=== PATIENT | male | born 1990 | race Caucasian/White ===

== ENCOUNTER 2016-07-12 16:45 | Emergency (ER) | payer OTHER ==
[2016-07-12] MEDS ORDERED: CLINDAMYCIN 150 MG CAP As Ordered ONE (20:12)
--- NOTE | 2016-07-12 20:22 | EDDOCDS ---
Nurse's Notes [facility] Name: Kelly Manriquez Age: 25 yrs Sex: Male : 1990 Arrival Date: 07/12/2016 Time: 16:45 Bed TR7 Private MD: Other - Complete Info On Cds Diagnosis: Cellulitis and abscess of mouth-DENTAL, RIGHT LOWER JAW, S/P WISDOM TOOTH REMOVAL Presentation: 07/12 16:52 Presenting complaint: Patient states: I had my wisdom teeth taken out on June 25 [facility] and I noticed yesterday some swelling on right side mouth and feel pain with facial movement and a salty pus like taste and discharge when I squeeze it. Adult Sepsis Screening: The patient does not have new or worsening altered mentation. Patient's respiratory rate is less than 22. Systolic blood pressure is greater than 100. Patient has a qSOFA score of 0- Negative Sepsis Screen. Suicide/Homicide risk assessment- the patient denies having any suicidal and/or homicidal ideations and does not present with any other emotional, behavioral or mental health complaints. 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 Transition of care: patient was not received from another setting of care. 16:52 Acuity: CHAPINCITO Level 4 [facility] 16:52 Method Of Arrival: Walkin/Carried/Asstd [facility] Triage Assessment: 16:54 General: Appears in no apparent distress, comfortable, Behavior is appropriate for age, [facility] cooperative. Pain: Location: mouth Pain currently is 4 out of 10 on a pain scale. 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 active duty . EENT: Reports pain Pain is 4 out of 10 on a pain scale. Respiratory: Airway is patent Respiratory effort is even, unlabored, Respiratory pattern is regular, symmetrical. Derm: Skin is pink, warm & dry. Historical: - Allergies: no known allergies; - Home Meds: 1. none - PMHx: none; - PSHx: shoulder, left, x2; - Social history: Smoking status: Patient uses tobacco products, light tobacco smoker. No barriers to communication noted. - Family history: Not pertinent. - : The pt / caregiver states he / she is not on anticoagulants. Home medication list is obtained from the patient. - Exposure Risk Screening:: None identified. Screenin:18 Screening information is obtained from the patient. Fall risk: No risks identified. jf3 Assistance ADL's: requires no assistance with activities of daily living. Abuse/DV Screen: The patient / caregiver reports he/she is: not in a situation that causes fear, pain or injury. Nutritional screening: No deficits noted. Advance Directives: Currently, there is no health care proxy. There is no active DNR order. home support is adequate. Assessment: 20:18 General: Appears in no apparent distress, comfortable, Behavior is cooperative. Pain: jf3 Location: left lower jaw Pain currently is 4 out of 10 on a pain scale. Neurological: Level of Consciousness is awake, alert, Oriented to person, place, time. Cardiovascular: Capillary refill < 3 seconds Chest pain is denied. Respiratory: Airway is patent Respiratory effort is even, unlabored. Derm: Skin is pink, warm & dry. Vital Signs: 16:47 BP 127 / 65; Pulse 97; Resp 18 S; Temp 98.3(O); Pulse Ox 97% on R/A; Weight 83.01 kg gr2 (R); Height 5 ft. 7 in. (170.18 cm) (R); Pain 4/10; 19:42 BP 128 / 79; Pulse 78; Resp 16; Temp 98.5(TE); Pulse Ox 98% on R/A; Pain 3/10; sew 16:47 Body Mass Index 28.66 (83.01 kg, 170.18 cm) gr2 Vitals: 16:47 Log In Time: July 12, 2016 at 16:47. gr2 ED Course: 16:47 Patient visited by Mason Sun. gr2 16:47 Other - Complete Info On Cds is Private Physician. gr2 16:47 Patient moved to Waiting gr2 16:49 Patient visited by Mason Sun. gr2 16:49 Patient moved to Pre RCE gr2 16:54 Triage Initiated cjh 19:36 Patient moved to Triage 2 jf3 19:42 Patient visited by Ghazala Booker. sew 19:45 Marisa Bethea [facility]-C [facility]. dt4 19:45 Kev Bower DO is Attending Physician. dt4 19:45 Patient visited by Marisa Bethea PA-C. dt4 20:10 Malvin Morse is Referral Physician. dt4 20:18 The patient / caregiver is instructed regarding the plan of care and ED course. jf3 20:18 No IV's were initiated during this patient's visit. No procedures done that require jf3 assistance. 20:21 Patient moved to [facility] Administered Medications: 20:18 Drug: Clindamycin 300 mg [clindamycin 150 mg capsule (2 caps)] Route: PO; jf3 20:21 Follow up: Response: Pt left department before re-evaluation is appropriate jf3 Order Results: There are currently no results for this order. Outcome: 20:10 Discharge ordered by Provider. dt4 20:18 Discharge Assessment: Patient awake, alert and oriented x 3. No cognitive and/or jf3 functional deficits noted. Patient verbalized understanding of disposition instructions. Discharge Assessment: patient administered narcotics - no. The following High Risk Discharge criteria are identified: None. Discharged to home ambulatory. Condition: good. Discharge instructions given to patient, Instructed on discharge instructions, follow up and referral plans. medication usage, no driving heavy equipment, Demonstrated understanding of instructions, medications, Pt was receptive of discharge instructions/ teaching. No special radiology studies were completed. Property :Personal belongings accompany Pt. 20:21 Patient left the ED. jf3 Signatures: Chacho Sam, RN RN cz Annie Travis,RN RN safia Ghazala Booker Gainslee gr2 Marisa Bethea PA-C PA-C dt4 John Rice,RN RN jf3 MTDD
--- NOTE | 2016-07-12 20:22 | EDDOCDS ---
Physician Documentation [facility] Name: Kelly Manriquez Age: 25 yrs Sex: Male : 1990 Arrival Date: 07/12/2016 Time: 16:45 Bed TR7 Private MD: Other - Complete Info On Cds Disposition: 07/12/16 20:10 Discharged to Home/Self Care. Impression: Cellulitis and abscess of mouth - DENTAL, RIGHT LOWER JAW, S/P WISDOM TOOTH REMOVAL. - Condition is Stable. - Discharge Instructions: Dental Abscess. - Prescriptions for Clindamycin HCl 300 mg Oral Capsule - take 1 capsule by ORAL route every 6 hours; 40 capsule. [place] 5- 325 mg Oral Tablet - take 1 tablet by ORAL route every 6 hours As needed MDD: 4 tabs; 10 tablet. - Medication Reconciliation, Local Pharmacy Hours form. - Follow up: Emergency Department; When: As needed; Reason: Worsening of conditions. Follow up: Malvin Morse; When: 2 - 3 days; Reason: Wound/Symptom Recheck, Recheck today's complaints, Continuance of care. - Problem is new. - Symptoms are unchanged. Historical: - Allergies: no known allergies; - Home Meds: 1. none - PMHx: none; - PSHx: shoulder, left, x2; - Social history: Smoking status: Patient uses tobacco products, light tobacco smoker. No barriers to communication noted. - Family history: Not pertinent. - : The pt / caregiver states he / she is not on anticoagulants. Home medication list is obtained from the patient. - Exposure Risk Screening:: None identified. Vital Signs: 07/12 16:47 BP 127 / 65; Pulse 97; Resp 18 S; Temp 98.3(O); Pulse Ox 97% on R/A; Weight 83.01 kg / gr2 183.01 lbs (R); Height 5 ft. 7 in. (170.18 cm) (R); Pain 4/10; 19:42 BP 128 / 79; Pulse 78; Resp 16; Temp 98.5(TE); Pulse Ox 98% on R/A; Pain 3/10; sew 16:47 Body Mass Index 28.66 (83.01 kg, 170.18 cm) gr2 MDM: 20:09 Clindamycin 300 mg PO once ordered. dt4 Administered Medications: 20:18 Drug: Clindamycin 300 mg [clindamycin 150 mg capsule (2 caps)] Route: PO; jf3 20:21 Follow up: Response: Pt left department before re-evaluation is appropriate jf3 Signatures: Annie Travis,RN RN Marisa Núñez PA-C PA-C dt4 John Rice RN RN jf3 MTDD
--- NOTE | 2016-07-14 21:23 | EDDOCDS ---
Physician Documentation [facility] Name: Kelly Manriquez Age: 25 yrs Sex: Male : 1990 Arrival Date: 07/12/2016 Time: 16:45 Bed TR7 Private MD: Other - Complete Info On Cds Disposition: 07/12/16 20:10 Discharged to Home/Self Care. Impression: Cellulitis and abscess of mouth - DENTAL, RIGHT LOWER JAW, S/P WISDOM TOOTH REMOVAL. - Condition is Stable. - Discharge Instructions: Dental Abscess. - Prescriptions for Clindamycin HCl 300 mg Oral Capsule - take 1 capsule by ORAL route every 6 hours; 40 capsule. [place] 5- 325 mg Oral Tablet - take 1 tablet by ORAL route every 6 hours As needed MDD: 4 tabs; 10 tablet. - Medication Reconciliation, Local Pharmacy Hours form. - Follow up: Emergency Department; When: As needed; Reason: Worsening of conditions. Follow up: Malvin Morse; When: 2 - 3 days; Reason: Wound/Symptom Recheck, Recheck today's complaints, Continuance of care. - Problem is new. - Symptoms are unchanged. Historical: - Allergies: no known allergies; - Home Meds: 1. none - PMHx: none; - PSHx: shoulder, left, x2; - Social history: Smoking status: Patient uses tobacco products, light tobacco smoker. No barriers to communication noted. - Family history: Not pertinent. - : The pt / caregiver states he / she is not on anticoagulants. Home medication list is obtained from the patient. - Exposure Risk Screening:: None identified. Vital Signs: 07/12 16:47 BP 127 / 65; Pulse 97; Resp 18 S; Temp 98.3(O); Pulse Ox 97% on R/A; Weight 83.01 kg / gr2 183.01 lbs (R); Height 5 ft. 7 in. (170.18 cm) (R); Pain 4/10; 19:42 BP 128 / 79; Pulse 78; Resp 16; Temp 98.5(TE); Pulse Ox 98% on R/A; Pain 3/10; sew 16:47 Body Mass Index 28.66 (83.01 kg, 170.18 cm) gr2 MDM: 20:09 Clindamycin 300 mg PO once ordered. dt4 20:29 Financial registration complete. ks 20:29 [facility] Payment Agreement was scanned into [employer] and attached to record. 07/13 17:20 T-Sheet-- Draft Copy was scanned into [employer] and attached to record. klr Administered Medications: 07/12 20:18 Drug: Clindamycin 300 mg [clindamycin 150 mg capsule (2 caps)] Route: PO; jf3 20:21 Follow up: Response: Pt left department before re-evaluation is appropriate jf3 Signatures: Annie Travis,RN RN [facility] Marisa Bethea, PAKenyattaC PA-C dt4 John Rice RN RN jf3 Celestina Pearce, Reg Reg ks16 Jena Karimi klr The chart was reviewed and I authenticate all verbal orders and agree with the evaluation and treatment provided.Attachments: : [facility] Payment Agreement 07/13 17:20 T-Sheet-- Draft Copy klr Chart Complete MTDD
--- NOTE | 2016-07-14 21:23 | EDDOCDS ---
Physician Documentation [facility] Name: Kelly Manriquez Age: 25 yrs Sex: Male : 1990 Arrival Date: 07/12/2016 Time: 16:45 Bed TR7 Private MD: Other - Complete Info On Cds Disposition: 07/12/16 20:10 Discharged to Home/Self Care. Impression: Cellulitis and abscess of mouth - DENTAL, RIGHT LOWER JAW, S/P WISDOM TOOTH REMOVAL. - Condition is Stable. - Discharge Instructions: Dental Abscess. - Prescriptions for Clindamycin HCl 300 mg Oral Capsule - take 1 capsule by ORAL route every 6 hours; 40 capsule. [place] 5- 325 mg Oral Tablet - take 1 tablet by ORAL route every 6 hours As needed MDD: 4 tabs; 10 tablet. - Medication Reconciliation, Local Pharmacy Hours form. - Follow up: Emergency Department; When: As needed; Reason: Worsening of conditions. Follow up: Malvin Morse; When: 2 - 3 days; Reason: Wound/Symptom Recheck, Recheck today's complaints, Continuance of care. - Problem is new. - Symptoms are unchanged. Historical: - Allergies: no known allergies; - Home Meds: 1. none - PMHx: none; - PSHx: shoulder, left, x2; - Social history: Smoking status: Patient uses tobacco products, light tobacco smoker. No barriers to communication noted. - Family history: Not pertinent. - : The pt / caregiver states he / she is not on anticoagulants. Home medication list is obtained from the patient. - Exposure Risk Screening:: None identified. Vital Signs: 07/12 16:47 BP 127 / 65; Pulse 97; Resp 18 S; Temp 98.3(O); Pulse Ox 97% on R/A; Weight 83.01 kg / gr2 183.01 lbs (R); Height 5 ft. 7 in. (170.18 cm) (R); Pain 4/10; 19:42 BP 128 / 79; Pulse 78; Resp 16; Temp 98.5(TE); Pulse Ox 98% on R/A; Pain 3/10; sew 16:47 Body Mass Index 28.66 (83.01 kg, 170.18 cm) gr2 MDM: 20:09 Clindamycin 300 mg PO once ordered. dt4 20:29 Financial registration complete. ks 20:29 PENDING S[facility] TO [facility] Payment Agreement was scanned into [employer] and attached to record. 07/13 17:20 T-Sheet-- Draft Copy was scanned into [employer] and attached to record. klr Administered Medications: 07/12 20:18 Drug: Clindamycin 300 mg [clindamycin 150 mg capsule (2 caps)] Route: PO; jf3 20:21 Follow up: Response: Pt left department before re-evaluation is appropriate jf3 Signatures: Annie Travis,RN RN [facility] Marisa Bethea, PAKenyattaC PA-C dt4 John Rice RN RN jf3 Celestina Pearce, Reg Reg ks16 Jena Karimi klr The chart was reviewed and I authenticate all verbal orders and agree with the evaluation and treatment provided.Attachments: : [facility] Payment Agreement 07/13 17:20 T-Sheet-- Draft Copy klr Chart Complete MTDD
--- NOTE | 2016-07-14 21:23 | EDDOCDS ---
Nurse's Notes [facility] Name: Kelly Manriquez Age: 25 yrs Sex: Male : 1990 Arrival Date: 07/12/2016 Time: 16:45 Bed TR7 Private MD: Other - Complete Info On Cds Diagnosis: Cellulitis and abscess of mouth-DENTAL, RIGHT LOWER JAW, S/P WISDOM TOOTH REMOVAL Presentation: 07/12 16:52 Presenting complaint: Patient states: I had my wisdom teeth taken out on June 25 [facility] and I noticed yesterday some swelling on right side mouth and feel pain with facial movement and a salty pus like taste and discharge when I squeeze it. Adult Sepsis Screening: The patient does not have new or worsening altered mentation. Patient's respiratory rate is less than 22. Systolic blood pressure is greater than 100. Patient has a qSOFA score of 0- Negative Sepsis Screen. Suicide/Homicide risk assessment- the patient denies having any suicidal and/or homicidal ideations and does not present with any other emotional, behavioral or mental health complaints. 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 Transition of care: patient was not received from another setting of care. 16:52 Acuity: CHAPINCITO Level 4 [facility] 16:52 Method Of Arrival: Walkin/Carried/Asstd [facility] Triage Assessment: 16:54 General: Appears in no apparent distress, comfortable, Behavior is appropriate for age, [facility] cooperative. Pain: Location: mouth Pain currently is 4 out of 10 on a pain scale. 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 active duty . EENT: Reports pain Pain is 4 out of 10 on a pain scale. Respiratory: Airway is patent Respiratory effort is even, unlabored, Respiratory pattern is regular, symmetrical. Derm: Skin is pink, warm & dry. Historical: - Allergies: no known allergies; - Home Meds: 1. none - PMHx: none; - PSHx: shoulder, left, x2; - Social history: Smoking status: Patient uses tobacco products, light tobacco smoker. No barriers to communication noted. - Family history: Not pertinent. - : The pt / caregiver states he / she is not on anticoagulants. Home medication list is obtained from the patient. - Exposure Risk Screening:: None identified. Screenin:18 Screening information is obtained from the patient. Fall risk: No risks identified. jf3 Assistance ADL's: requires no assistance with activities of daily living. Abuse/DV Screen: The patient / caregiver reports he/she is: not in a situation that causes fear, pain or injury. Nutritional screening: No deficits noted. Advance Directives: Currently, there is no health care proxy. There is no active DNR order. home support is adequate. Assessment: 20:18 General: Appears in no apparent distress, comfortable, Behavior is cooperative. Pain: jf3 Location: left lower jaw Pain currently is 4 out of 10 on a pain scale. Neurological: Level of Consciousness is awake, alert, Oriented to person, place, time. Cardiovascular: Capillary refill < 3 seconds Chest pain is denied. Respiratory: Airway is patent Respiratory effort is even, unlabored. Derm: Skin is pink, warm & dry. Vital Signs: 16:47 BP 127 / 65; Pulse 97; Resp 18 S; Temp 98.3(O); Pulse Ox 97% on R/A; Weight 83.01 kg gr2 (R); Height 5 ft. 7 in. (170.18 cm) (R); Pain 4/10; 19:42 BP 128 / 79; Pulse 78; Resp 16; Temp 98.5(TE); Pulse Ox 98% on R/A; Pain 3/10; sew 16:47 Body Mass Index 28.66 (83.01 kg, 170.18 cm) gr2 Vitals: 16:47 Log In Time: July 12, 2016 at 16:47. gr2 ED Course: 16:47 Patient visited by Mason Sun. gr2 16:47 Other - Complete Info On Cds is Private Physician. gr2 16:47 Patient moved to Waiting gr2 16:49 Patient visited by Mason Sun. gr2 16:49 Patient moved to Pre RCE gr2 16:54 Triage Initiated cjh 19:36 Patient moved to Triage 2 jf3 19:42 Patient visited by Ghazala Booker. sew 19:45 Mar[facility] Bethea [facility]C [facility]. dt4 19:45 Kev Bower DO is Attending Physician. dt4 19:45 Patient visited by Marisa Bethea PA-C. dt4 20:10 Malvin Morse is Referral Physician. dt4 20:18 The patient / caregiver is instructed regarding the plan of care and ED course. jf3 20:18 No IV's were initiated during this patient's visit. No procedures done that require jf3 assistance. 20:21 Patient moved to [facility] 20:29 [facility] Payment Agreement was scanned into [employer] and attached to record. ks16 07/13 17:20 T-Sheet-- Draft Copy was scanned into [employer] and attached to record. klr Administered Medications: 07/12 20:18 Drug: Clindamycin 300 mg [clindamycin 150 mg capsule (2 caps)] Route: PO; jf3 20:21 Follow up: Response: Pt left department before re-evaluation is appropriate jf3 Order Results: There are currently no results for this order. Outcome: 20:10 Discharge ordered by Provider. dt4 20:18 Discharge Assessment: Patient awake, alert and oriented x 3. No cognitive and/or jf3 functional deficits noted. Patient verbalized understanding of disposition instructions. Discharge Assessment: patient administered narcotics - no. The following High Risk Discharge criteria are identified: None. Discharged to home ambulatory. Condition: good. Discharge instructions given to patient, Instructed on discharge instructions, follow up and referral plans. medication usage, no driving heavy equipment, Demonstrated understanding of instructions, medications, Pt was receptive of discharge instructions/ teaching. No special radiology studies were completed. Property :Personal belongings accompany Pt. 20:21 Patient left the ED. jf3 Signatures: Chacho Sam, RN RAFA cz Annie TravisRN RN [facility] Ghazala Booker Gainslee gr2 Marisa Bethea, PAImer PAImer dt4 John Rice RN RN jf3 Celestina Pearce, Reg Reg ks16 Jena Karimi r Chart Complete MTDD
== END 2016-07-12 20:21 | disposition home or self-care (01) ==
LOC: M ED 16:45
DX: K04.7 Periapical abscess without sinus (principal); K08.409 Partial loss of teeth, unspecified cause, unspecified class

== ENCOUNTER 2017-09-19 03:00 | Emergency (ER) | payer OTHER ==
[2017-09-19 04:22] LABS: ALBUMIN 3.9 GM/DL (3.2-5.2); ALBUMIN/GLOBULIN RATIO 1.22 (1.00-1.93); ALKALINE PHOSPHATASE 195 U/L (45-117); ALT/SGPT 51 U/L (12-78); ANION GAP 5 MEQ/L (8-16); AST/SGOT 30 U/L (7-37); BILIRUBIN,DIRECT < 0.1 MG/DL (0.0-0.2); BILIRUBIN,TOTAL 0.2 MG/DL (0.2-1.0); BLOOD UREA NITROGEN 12 MG/DL (7-18); CALCIUM LEVEL 8.5 MG/DL (8.5-10.1); CARBON DIOXIDE LEVEL 29 MEQ/L (21-32); CHLORIDE LEVEL 108 MEQ/L (98-107); CREATININE FOR GFR 1.02 MG/DL (0.70-1.30); GLOMERULAR FILTRATION RATE > 60.0 (>60); GLUCOSE, FASTING 106 MG/DL (70-100); LIPASE 114 U/L (73-393); POTASSIUM SERUM 3.9 MEQ/L (3.5-5.1); SODIUM LEVEL 142 MEQ/L (136-145); TOTAL PROTEIN 7.1 GM/DL (6.4-8.2)
[2017-09-19] MEDS: PANTOPRAZOLE 40MG INJ (PROTONIX) (C9113) IV (04:54)
[2017-09-19] MEDS: NS 1,000 ML IV (04:54)
[2017-09-19] MEDS: GI COCKTAIL 50ML BTL(HYOSCYAMINE/MAALOX/LIDOCAINE VISCOUS)(1:3:1) PO (04:55)
[2017-09-19] MEDS: KETOROLAC 30 MG/ML VIAL (J1885) IV (05:26)
== END 2017-09-19 06:18 | disposition home or self-care (01) ==
LOC: M ED 03:00
DX: R07.9 Chest pain, unspecified (principal); I44.0 Atrioventricular block, first degree; R94.31 Abnormal electrocardiogram [ECG] [EKG]; Z98.890 Other specified postprocedural states
CPT/HCPCS: C9113